=== PATIENT | male | born 1980 | race Caucasian/White ===

== ENCOUNTER 2022-01-15 10:53 | Outpatient (CLI) | payer OTHER, BC, SELFPAY ==
[2022-01-15 13:46] LABS: Albumin* 4.7 g/dL (3.3-5.0); Chloride* 102 mmol/L (96-114); Sodium* 139 mmol/L (135-149)
[2022-01-15 13:47] LABS: Potassium* 4.5 mmol/L (3.6-5.1)
[2022-01-15 13:48] LABS: Cholesterol* 168 mg/dL (90-199)
[2022-01-15 13:49] LABS: Alkaline Phosphatase* 37 U/L (40-150); Aspartate Amino Transferase* 23 U/L (12-35); Bilirubin Total* 0.8 mg/dL (0.1-1.5); Blood Urea Nitrogen* 16 mg/dL (5-24); Calcium* 9.5 mg/dL (8.4-10.6); Carbon Dioxide* 27 mmol/L (20-32); Creatinine* 0.8 mg/dL (0.5-1.5); Estimated Glomerular Filt Rate 113 ml/min; Glucose* 98 mg/dL (60-115); Total Protein* 7.3 g/dL (6.0-8.3); Triglycerides* 284 mg/dL (40-149)
[2022-01-15 13:50] LABS: Alanine Aminotransferase* 33 U/L (4-50); HDL Cholesterol* 38 mg/dL (>=40); LDL Cholesterol Calculated 73 mg/dL (<100)
== END 2022-01-15 10:54 | disposition home or self-care (01) ==
PROVIDERS: PCP Family Medicine; Visit Provider Family Medicine
DX: E78.00 Pure hypercholesterolemia, unspecified (principal)
CPT/HCPCS: 80053; 80061

== ENCOUNTER 2022-09-19 08:51 | Outpatient (CLI) | payer OTHER, BC, SELFPAY | END 2022-09-19 08:52 | disposition home or self-care (01) | LOC: OP CLINIC 08:53 | PROVIDERS: PCP Family Medicine; Visit Provider Surgery | DX: R19.7 Diarrhea, unspecified (principal) | CPT/HCPCS: 43239; 88305; J2250; J3010 ==

== ENCOUNTER 2023-04-14 08:02 | Outpatient (CLI) | payer OTHER, BC, SELFPAY | END 2023-04-14 08:03 | disposition home or self-care (01) | LOC: NFLDREF 04-16 06:53 | PROVIDERS: PCP Family Medicine; Referring Provider Family Medicine; Visit Provider Family Medicine | DX: E78.5 Hyperlipidemia, unspecified (principal); Z12.5 Encounter for screening for malignant neoplasm of prostate | CPT/HCPCS: 80053; 80061; G0103 ==

== ENCOUNTER 2023-08-12 15:46 | Outpatient (CLI) | payer OTHER, BC, SELFPAY ==
--- OUTSIDE RECORDS SUMMARY | 2023-08-12 15:50 | XMS_ITS | Clinical Summary ---
Author Name Unknown Organization [facility] Address [place], [place] [address] Care Team Providers Care Asset Protection Professional Name Role Phone Rm Romero MD Primary Care Provider [phone] Allergies Active Allergy Reactions Criticality Noted Date Comments Cefaclor Other - Describe In Comment Field 09/12/2009 Red man's disease Penicillins Other - Describe In Comment Field 09/12/2009 Red man's disease Medications Medication Sig Dispensed Refills Start Date End Date Status minocycline (MINOCIN) 100 mg capsule Take 1 capsule by mouth 2 times daily. 0 09/12/2009 Active Family History Medical History Relation Name Comments Good Health Father Cancer Mother Falopian Tube Relation Name Status Comments Father Mother Social History Tobacco Use Types Packs/Day Years Used Date Smoking Tobacco: Never Alcohol Use Standard Drinks/Week Comments Not Asked 0 (1 standard drink = 0.6 oz pur e alcohol) Sex and Gender Information Value Date Recorded Sex Assigned at Not on file Gender Identity Not on file Sexual Orientation Not on file Obstetrics History Last Filed Vital Signs Vital Sign Reading Time Taken Comments Blood Pressure 100/62 09/12/2009 2:18 PM CDT Pulse 66 09/12/2009 2:18 PM CDT Temperature - - Respiratory Rate - - Oxygen Saturation - - Inhaled Oxygen Concentration - - Weight 81.6 kg (180 lb) 09/12/2009 2:18 PM CDT Height 182 cm (5' 11.65) 09/12/2009 2:18 PM CDT Body Mass Index 24.65 09/12/2009 2:18 PM CDT Plan of Treatment Health Maintenance Due Date Last Done Comments Tdap 1989 Depression screening for age 12+ 1990 HIV for age 15-65 1993 BMI (ht and wt on same day) for age 18+ 1996 Hepatitis C screening for ag e 18-79 1996 Tetanus booster 1998 Lipids for age 35-44 2013 COVID-19 vaccine series (2022- season) 2022 02/07/2021, 06/28/2020, 06/02/2020 Influenza for age 9-49 12/07/2023 Pneumococcal series for age 6-64 Aged Out No longer eligible b ased on patient's age to complete this topic Care Teams Asset Protection Professional Relationship Specialty Start Date End Date Rm Romero MD [address] [place] [address] PCP - General Family Practice 02/27/22
--- NOTE | 2023-08-12 16:00 | CT_ITS ---
Patient: MARION ALICEA Facility:?[facility] Patient ID:?[id number] Site Patient ID:?[id number]. Site :?[id number] Study:?CT-Pelvis W/ ISOVUE 370-08/12/2023 4:19:28 PM Ordering Physician:PAM Final Report: Indication: Rectal pain with question of perirectal abscess. Left-sided pain with defecation Technique: CT examination of the pelvis was performed. Imaging was acquired in the axial plane. A total of 99 cc of Isovue 370 was administered. Imaging was acquired from the umbilicus through the upper thighs. Oral contrast was not administered. Sagittal and coronal reformatted imaging was performed Please note that all CT scans at this facility use dose modulation, iterative reconstruction, and/or weight-based dosing when appropriate to reduce radiation dose to as low as reasonably achievable. Comparison: There are no prior studies for comparison Findings: OSSEOUS STRUCTURES: Unremarkable SOFT TISSUES: Unremarkable PERIRECTAL AREA: Posterior perirectal collection with an enhancing margin most consistent with an abscess. This measures 2.1 x 2.1 x 2.3 centimeters in its anteroposterior, mediolateral and craniocaudal respective dimensions. This is isolated to the perirectal area and does not extend into the ischiorectal fossa or to a skin surface. Impression: Perirectal collection measuring 2.1 x 2.1 x 2.3 centimeters likely representing an abscess, as described above. Please note that all CT scans at this facility use dose modulation, iterative reconstruction, and/or weight-based dosing when appropriate to reduce radiation dose to as low as reasonably achievable. Dictated by Milton Woods MD @ 08/13/2023 8:00:02 AM Signed by:?Milton Woods MD @08/13/2023 8:00:02 AM (Electronic Signature)
== END 2023-08-12 15:47 | disposition home or self-care (01) ==
LOC: CT 15:47
PROVIDERS: PCP Family Medicine; Visit Provider Internal Medicine
DX: K62.89 Other specified diseases of anus and rectum (principal)
CPT/HCPCS: 72193; Q9967

== ENCOUNTER 2023-08-14 10:33 | Day surgery (SDC) | payer OTHER, BC, SELFPAY ==
[2023-08-14] VITALS (17 sets, daily range): BP systolic 104–125; BP diastolic 57–84; PULSE 58–71; RESP 14–16; TEMP 36.7–37.1; O2SAT 95–100; BMI 27.5
--- OUTSIDE RECORDS SUMMARY | 2023-08-14 10:36 | XMS_ITS | Clinical Summary ---
Author Name Unknown Organization [employer] [facility] Address [place], [place] [address] Care Team Providers Care Transfer Car Operator Drier Name Role Phone Rm Romero MD Primary Care Provider [phone] Allergies Active Allergy Reactions Criticality Noted Date [...] age to complete this topic Care Teams Transfer Car Operator Drier Relationship Specialty Start Date End Date Rm Romero MD [address] [place] [address] PCP - General Family Practice 02/27/22
[2023-08-14] MEDS: LACTATED RINGERS 1000 ML 1,000 ML 100 ML IV (11:17)
[2023-08-14] MEDS: SODIUM CHLORIDE 0.9 % (FLUSH) 10 ML SYRINGE IVF (11:17)
--- NOTE | 2023-08-14 11:40 | P.GSCN_ITS ---
History of Present Illness Consult details Date Seen: 08/14/23 Consult date: 08/14/23 Narrative: The patient is a 42-year-old male who presented to primary care clinic with 2 days of painful left-sided perirectal pain. This was worse with bowel movements. He has never had anything like this previously. Workup review node fullness in the perianal area on the left without obvious erythema or fluctuance. White blood cell count was normal. CT scan did show an abscess in the posterior perirectal space, not extending to the skin or ischial rectal fossa. He was given antibiotics and scheduled with surgery. He states the pain began abruptly 5 days ago. He thought was a hemorrhoid though he has never had hemorrhoids before. On Friday he was mowing and had significant amount of pain with walking. He has not had any fevers or drainage. Symptoms have not get better so he presented to clinic earlier this week. He was placed on antibiotics once the abscess was found and discussion was had with General surgery. The plan was exam under anesthesia. He presents today for this. He has never had an abscess previously. He has been diagnosed with irritable bowel syndrome in the past. He states that he has had issues of fecal urgency and incontinence that it happened. It happened 2 to times last week. He states that he does not necessarily have diarrhea, but his stools will be soft. He states that he has 2-3 soft stools per day. They are not firm and they are not loose. He has been on a soft diet because of oral surgery. He is also on prednisone and clindamycin from his oral surgeon. This was for an infection. He has now been on Cipro and Flagyl for the past 2 days. He is again not had any diarrhea or incontinence since last week. His daughter was diagnosed with celiac disease recently and he underwent an endoscopy which was normal. He is scheduled for colonoscopy in November. He has not seen anybody about his bowel issues, however he was supposed to see a urologist possibly as part of a pelvic floor center consult, however he was embarrassed by the testing that was going to have to be done and did not follow-up with that. [facility] Medical History (Updated 08/14/23 @ 11:49 by Chloe Jacobson MD) Rectal Pain ?K62.89 - Other specified diseases of anus and rectum (ICD-10) ETD (eustachian tube dysfunction) ?H69.80 - Other specified disorders of Eustachian tube, unspecified ear (ICD- 10) Family history of celiac disease ?Z83.79 - Family history of other diseases of the digestive system (ICD-10) Diarrhea ?R19.7 - Diarrhea, unspecified (ICD-10) Actinic keratosis ?L57.0 - Actinic keratosis (ICD-10) BPH associated with nocturia ?N40.1 - Benign prostatic hyperplasia with lower urinary tract symptoms (ICD- 10) ?R35.1 - Nocturia (ICD-10) Family History (Updated 08/14/23 @ 11:45 by Chloe Jacobson MD) Daughter Celiac disease Social History (Updated 08/14/23 @ 11:45 by Chloe Jacobson MD) Narrative: He works as a clinical unit educator. Smoking Status: Never smoker How often do you have a drink containing alcohol: monthly or less Alcohol type: beer How many standard drinks containing alcohol do you have on a typical day: 1 or 2 How often do you have six or more drinks on one occasion: Never AUDIT-C Alcohol total score: 1 Non-prescribed substance use: denies use Caffeine: No Little interest or pleasure in doing things: not at all Feeling down, depressed, or hopeless: not at all Meds Home Medications and Allergies Home Medications Medication Instructions Recorded Confirmed Type multivitamin 1 tab PO QDAY 01/28/22 08/14/23 History Allergies Allergy/AdvReac Type Severity Reaction Status Date / Time cefaclor Allergy Intermediate Rash Verified 08/14/23 10:46 Penicillins Allergy Rash Verified 08/14/23 10:46 Exam Narrative: Exam Narrative: General appearance: Alert, cooperative, and in no distress Eyes: PERRLA, eye lids clear, and sclera white HENT Head: Normocephalic Ears: External ears normal Pulmonary: Breathing nonlabored on room air Cardiovascular Heart: Regular rate Extremities: warm and well perfused Rectal: On external exam there is no erythema or masses. Digital exam deferred given patient discomfort and plan for exam under anesthesia. Musculoskeletal: Extremities: Upper: Both upper extremities have normal joint range of motion and intact strength. Lower: Both lower extremities have normal joint range of motion and intact strength. Skin: Normal skin color, texture, and turgor. Neurologic: No focal deficits Psychiatric: Alert, oriented, cooperative, normal affect. Results Labs Labs: Patient does not have recent labs. Imaging CT scan - pelvis: report reviewed and image reviewed Additional studies: Patient: MARION ALICEA Facility: [facility] Site . Site : 1980 Study: CT-Pelvis W/ ISOVUE 370-08/12/2023 4:19:28 PM Ordering Physician: MANOJ Final Report: Indication: Rectal pain with question of perirectal abscess. Left-sided pain with defecation Technique: CT examination of the pelvis was performed. Imaging was acquired in the axial plane. A total of 99 cc of Isovue 370 was administered. Imaging was acquired from the umbilicus through the upper thighs. Oral contrast was not administered. Sagittal and coronal reformatted imaging was performed Please note that all CT scans at this facility use dose modulation, iterative reconstruction, and/or weight-based dosing when appropriate to reduce radiation dose to as low as reasonably achievable. Comparison: There are no prior studies for comparison Findings: OSSEOUS STRUCTURES: Unremarkable SOFT TISSUES: Unremarkable PERIRECTAL AREA: Posterior perirectal collection with an enhancing margin most consistent with an abscess. This measures 2.1 x 2.1 x 2.3 centimeters in its anteroposterior, mediolateral and craniocaudal respective dimensions. This is isolated to the perirectal area and does not extend into the ischiorectal fossa or to a skin surface. Impression: Perirectal collection measuring 2.1 x 2.1 x 2.3 centimeters likely representing an abscess, as described above. Progress Note:A&P Assessment and plan (1) Perirectal abscess: Status: Acute Plan The patient is 42-year-old male with a perirectal abscess, given symptoms and presentation likely intersphincteric. We discussed the management of this which is exam under anaesthesia and definitive drainage. Intersphincteric abscess he is generally need to be drained. Generally in the setting of intersphincteric abscess and drainage into the rectum, it is necessary to divide some of the internal sphincter muscle fibers. I am hesitant to do this in his case given his history of urgency and incontinence. He understands that if this recurs I will refer him to Colorectal surgery. He asked if his colonoscopy should be done sooner. I think this is reasonable, however I do think he should heal from the abscess 1st. If there is no internal fistula then I will drain the asked this to the skin. There chance he may need a seton, based on intraoperative findings we discussed seton placement and that this would necessitate additional procedures to ligate the persistent fistula tract. This will be done by Colorectal surgery. We discussed recovery from surgery and return to activities. Some of this will depend on exactly what is found at the time surgery. He expressed understanding and agreed to proceed with exam under anesthesia and drainage of this abscess.
[2023-08-14] MEDS: ERTAPENEM 1 GM inj IVPB (12:00)
[2023-08-14] MEDS: BUPIVACAINE 0.25% 30 ML 10 ML INJECTION (12:09)
[2023-08-14] MEDS: BUPIVACAINE LIPOSOME 133 MG/10 ML INJ INFILTRATI (12:30)
--- NOTE | 2023-08-14 12:47 | W.ANESCHARGE ---
Anesthesia Charges Start Date/Time Anesthesia Start Date: 08/14/23 Anesthesia Start Time: 11:43 Stop Date/Time Anesthesia Stop Date: 08/14/23 Anesthesia Stop Time: 12:46
--- NOTE | 2023-08-14 12:49 | PM.GSPRC ---
Operative Note Date of procedure: 08/14/23 Pre-op diagnosis: Sonam rectal abscess Post-op diagnosis: Same Type of Procedure: 1. Exam under anesthesia 2. Incision and drainage perirectal abscess Indications: The patient is a 42-year-old male who developed perianal pain. Workup revealed a perirectal abscess posteriorly. Exam under anesthesia and drainage was recommended. Procedure Description: After discussing the risks and benefits of the procedure, the patient signed informed consent.? The operative site was marked and the patient was brought to the operating room and intubated by Anesthesia. He was then placed in the prone good-knife position with care to pad his pressure points. The area was prepped and draped in the usual sterile fashion.? A time-out was then performed. I began with an external exam. I was unable to palpate any masses. There was no erythema on the perianal skin. I placed my finger in the anal canal. No masses were palpable. I was able to palpate both sphincter muscles. No masses were palpable here. There was no purulence draining into the anal canal and no visible internal openings. I then used a 19 gauge needle and, palpating just posterior to the external sphincter, I advanced the needle and aspirated copious purulent fluid. This was sent for culture. I then created a small incision in the skin again outside of the palpable external sphincter muscle. I used a Millie clamp to gently probe into the subcutaneous tissue and the abscess cavity was entered. Copious purulence returned. This was irrigated. Once this was done the wound was packed with quarter-inch packing strip. Hemostasis appeared adequate at the end of the case. A dressing was applied over the packing strip. The patient was then woken and transported to the recovery area in stable condition. ? The patient tolerated the procedure well. Findings: Posterior perirectal abscess. No internal openings noted. Anesthesia: GETA Surgeon: Chloe Jacobson MD Estimated blood loss (mL): 5 Specimen: Other Additional Specimen Information: Abscess fluid for culture Condition: stable Disposition: PACU
--- NOTE | 2023-08-14 13:00 | W.ANESCHARGE ---
Anesthesia Charges Start Date/Time Anesthesia Start Date: 08/14/23 Anesthesia Start Time: 11:43 Stop Date/Time Anesthesia Stop Date: 08/14/23 Anesthesia Stop Time: 12:46
[2023-08-14] MEDS: fentaNYL 100 MCG/2 ML inj 50 MCG IVP ×2 (13:06→13:16)
--- NOTE | 2023-08-14 13:54 | SUR.OPER ---
PATIENT QUESTIONS ANSWERED SATISFACTORILY PREOPERATIVELY. PATIENT BROUGHT TO OR #1 PER CART. Patient positioned supine on OR #1 bed for the intubation. The perioperative team supported arms bilaterally on arm boards. Final approval of positioning by surgeon.
[2023-08-14] MEDS: HYDROCODONE-ACETAMIN 5-325 MG 1 TAB PO (14:27)
== END 2023-08-14 14:58 | disposition home or self-care (01) ==
PROVIDERS: PCP Family Medicine; Visit Provider Surgery
PROC: (CPT 46040; principal; 2023-08-14 10:45)
DX: K61.1 Rectal abscess (principal); K62.89 Other specified diseases of anus and rectum
CPT/HCPCS: 46040; 00902; 87070; 87075; 87205; A9270; C9290; J0665; J1100; J1335; J1885; J2250; J2405; J2704; J2710; J3010; J7120

== ENCOUNTER 2023-11-20 06:35 | Outpatient (CLI) | payer BC, SELFPAY ==
--- OUTSIDE RECORDS SUMMARY | 2023-11-20 06:40 | XMS_ITS | Clinical Summary ---
Author Organization [employer] [facility] Address [place], [place] [address] Care Team Providers Care Stock Or Delivery Clerk Name Role Phone Rm Romero MD Primary Care Provider [phone] Allergies Active Allergy Reactions Criticality Noted Date [...] ag e 18-79 1996 Tetanus booster 1998 COVID-19 vaccine series (2022- season) 2022 02/07/2021, 06/28/2020, 06/02/2020 Colonoscopy through age 75 11/07/2023 Lipids for age 45-75 11/07/2023 Influenza for age 9-49 12/07/2023 Pneumococcal series for age 6-64 Aged Out No longer eligible b ased on patient's age to complete this topic Care Teams Stock Or Delivery Clerk Relationship Specialty Start Date End Date Rm Romero MD [address] [place] [address] PCP - General Family Practice 02/27/22
--- OUTSIDE RECORDS SUMMARY | 2023-11-20 06:40 | XMS_ITS | Data Portability ---
Author Organization [place] [facility] [place] [facility], [facility] Address [address] [place] [address] [address] [place] [address] Care Team Providers Care Presser Machine Name Role Phone ALY ROQUE Primary Care Provider Assessment Encounter Date Assessment Date Assessment LastModified by Organization Details LastModified Time 11/19/2023 11/19/2023 43M with urinary frequency, urgency, and urge incontinence. Treatment options for overactive bladder were reviewed with the patient today. First line measures include non-pharmacologi c options like dietary changes, bladder training, distraction, pelvic floor exercises/streng thening, pelvic floor physical therapy and fluid restriction. Limiting amounts of bladder irritants such as coffee, tea, other caffeinated drinks, soda, alcohol & carbonated water, can help along with dietary changes like avoiding spicy and acidic foods. Decreasing fluids 2-3 hours prior to bedtime can also help. Second line therapy includes medication management of symptoms. There are many medications that are approved for OAB (anticholinergic s--risk for dry mouth/constipati on most commonly, or a newer Hvvg-2-azjiewc medications, Myrbetriq & Gemtesa). I have suggested looking into insurance coverage for medication, as some beta-3s are not covered well under some insurance plans. Appears his insurance covers Gemtesa with predicted cost of $40/month. 1. Urinary urgency and frequency, Urge incontinence - stop tamsulosin - lifestyle/dietar y modifications as above - trial Gemtesa 75 mg daily, side effects reviewed, 8+ weeks to take full effect - will be starting PFPT through colorectal in January and should proceed with that - f/u in 8 weeks for PVR, symptom review [email or web address] Not available 11/19/2023 15:21:24 Plan of Treatment Reminders Order Date Submit Date Provider Last Modified By Organization Details Last Modified Time Details Appointments ESTABLISH ED 20 2023 10:40A M Not available Not available Not available Lab urinalysi s, dipstick 2023 024 [email or web address] [facility], [address], [place], [address], 11/19/2023 14:22:02 Referral None recorded. Procedures None recorded. Surgeries None recorded. Imaging None recorded. Medication Orders Gemtesa 75 mg tablet 2023 024 [id number], [address], [place], [address], 11/19/2023 14:34:47 Patient TargetsNo targets recorded. Patient InstructionsNo instructions recorded. Reason for Referral None Reported. Results Created Date Observation Date Name Description Value Unit Range Abnormal Flag LastModifiedBy Organization Detail LastModifiedTime 11/19/1911/19/2023 urina lysis , dipst ick BLOOD Negati ve Not Available [facility] [address], [place], [address], 11/19/2023 09:10:52 11/19/19 24 11/19/2023 urina lysis , dipst ick BILIRUBIN Negati ve Not Available [facility] [address], [place], [address], 11/19/2023 09:10:52 11/19/1911/19/2023 urina lysis , dipst ick UROBILINOGEN 0.2 mg/dL (Norm) Not Available [facility] [address], [place], [address], 11/19/2023 09:10:52 11/19/19 24 11/19/2023 urina lysis , dipst ick KETONES Negati ve Not Available [facility] [address], [place], [address], 11/19/2023 09:10:52 11/19/19 24 11/19/2023 urina lysis , dipst ick PROTEIN Negati ve Not Available [facility] [address], [place], [address], 11/19/2023 09:10:52 11/19/19 24 11/19/2023 urina lysis , dipst ick NITRITES Negati ve Not Available [facility] [address], [place], [address], 11/19/2023 09:10:52 11/19/19 24 11/19/2023 urina lysis , dipst ick GLUCOSE Negati ve Not Available [facility] [address], [place], [address], 11/19/2023 09:10:52 11/19/19 24 11/19/2023 urina lysis , dipst ick p.H. 5.5 Not Available [facility] [address], [place], [address], 11/19/2023 09:10:52 11/19/19 24 11/19/2023 urina lysis , dipst ick LEUKOCYTES Negati ve Not Available [facility] [address], [place], [address], 11/19/2023 09:10:52 11/19/19 24 11/19/2023 urina lysis , dipst ick S.G. (Specific [place]) 1.025 Not Available [facility] [address], [place], [address], 11/19/2023 09:10:52 Result Notes None recorded. Problems Name Status Onset Date Resolution Date Notes Provider Name and Address Organization Details Recorded Time Increased frequency of urination Active 11/18/19 Kristina Dean PA-C [address] [place] [address], [place], [place], [address] [place] [address] [facility] 11/18/2023 16:54:27 Urgent desire to urinate Active 11/19/19 24 Kristina Dean PA-C [address] [place] [address],[address] 11/19/2023 14:28:57 Urge incontinence of urine Active 11/19/19 24 Kristina Dean PA-C [address] [place] [address],[address] 11/19/2023 14:28:58 Problem Notes None recorded. Procedures Surgical History Date Name Laterality Status Provider Name and Address Organization Details Recorded Time Bladder Scan completed Kristina Dean PA-C [address] [place] [address],[address] 11/19/2023 15:20:31 Imaging Results None recorded. Procedure Notes None recorded. Medical Equipment None Reported. Allergies Allergen ID Allergen Name Allergen Category Reaction Reaction Severity Criticality Documentation Date Start Date Code Code System Note Provider Name and Address Organization Details Recorded Time 559828 Medicinal product containin g penicilli n and acting as antibacte rial agent (product) medicatio n Not available Not available Not available 11/19/2023 09500 05 [facility]ED [facility] Medications Name Sig Start Date Stop Date Status Note LastModified by Organization Details LastModified Time clindamycin HCl 300 mg capsule TAKE ONE CAPSULE BY MOUTH THREE TIMES DAILY UNTIL GONE* 11/18 completed Not Available Not Available Not Available etodolac 300 mg capsule TAKE FIRST TABLET ONE HOUR PRIOR TO SURGICAL APPOINTME NT. AFTER SURGERY TAKE ONE TABLET EVERY 8 HOURS NEEDED FOR DISCOMFOR T* 11/18 completed Not Available Not Available Not Available azithromyci n 250 mg tablet TAKE 2 TABLETS BY MOUTH ON DAY 1 THEN 1 TABLET DAILY ON DAYS 2-5* 11/18 completed Not Available Not Available Not Available prednisone 20 mg tablet Take 1 tablet by mouth twice a day for 5 days* 11/18 completed Not Available Not Available Not Available fluorouraci l 5 % topical cream Apply cream to affected skin one day per week.* 11/18 completed Not Available Not Available Not Available metronidazo le 250 mg tablet Take 1 tablet by mouth three times a day* 11/18 completed Not Available Not Available Not Available ciprofloxac in 500 mg tablet Take 1 tablet by mouth twice a day* 11/18 completed Not Available Not Available Not Available ketorolac 10 mg tablet TAKE ONE TABLET BY MOUTH THREE TIMES DAILY NEEDED FOR PAIN* 11/18 completed Not Available Not Available Not Available tamsulosin 0.4 mg capsule Take 1 capsule by mouth every day at bedtime* active Not Available Not Available No t Available cephalexin 500 mg capsule STARTING MORNING OF SURGERY, TAKE 1 CAPSULE BY MOUTH 3 TIMES DAILY* 11/18 completed Not Available Not Available Not Available methylpredn isolone 4 mg tablets in a dose pack STARTING THE MORNING OF SURGERY, FOLLOW PACKAGE DIRECTION S* 11/18 completed Not Available Not Available Not Available rosuvastati n 20 mg tablet Take 1 tablet by mouth daily* active Not Available Not Available No t Available chlorhexidi ne gluconate 0.12 % mouthwash STARTING MORNING OF SURGERY, RINSE AND SPIT 15 MLS IN MOUTH AFTER BREAKFAST AND AT BEDTIME. DO NOT EAT, DRINK, OR RINSE FOR 30 MINUTES.* 11/18 completed Not Available Not Available Not Available GaviLyte-G 236 gram-22.74 gram-6.74 gram-5.86 gram oral solution 1 day prior to scopes, between 4 and 6 p.m., drink 8 oz glass every 15 minutes until half a gallon is gone. 6 hours prior to procedure , drink 8 oz glass every 15 minutes until second half gallon is gone.* 11/18 completed Not Available Not Available Not Available Gemtesa 75 mg tablet Take 1 tablet every day by oral route. 2023 active Not Available Not Available Not Avai lable Vitals Date Recorded Body height Body mass index (BMI) Body weight Provider Name and Address Organization Details Last Updated DateTime 11/19/2023 182.88 cm 26.4 kg/m2 43543.[address] [facility] 11/19/2023 14:12:39 Social History Question Answer Notes LastModified by Organizat ion Details LastModified Time Tobacco Smoking Status Never Smoker Adeola avilez [facility] 11/19/2023 14:10:03 What Is Your Level Of Alcohol Consumption? Occasional Information not available 11/19/2023 What Is Your Level Of Caffeine Consumption? None Information not available 11/19/2023 What Was The Date Of Your Most Recent Tobacco Screening? 11/12/2023 Information not available 11/19/2023 Have You Ever Been Counseled For Unhealthy Alcohol Use? No Information not available 11/19/2023 Do You Use Any Illicit Or Recreational Drugs? No Information not available 11/19/2023 Do You Or Have You Ever Used Any Other Forms Of Tobacco Or Nicotine? No Information not available 11/19/2023 How Many Days In The Past Year Have You Consumed 5 Or More Drinks? 0 Information no t available 11/19/2023 Sex: Unknown Functional Status None recorded. Mental Status None recorded. Family History Relationship Description Onset Age of this Age Resolved Age Notes Notes:Fallopian cancer - Mot her Medical History Condition Response Other N High Blood Pressure N Kidney Stones N Depression N Lung Disease N GERD/Acid Reflux N Sexually Transmitted Infection N Cancer Y High Cholesterol Y Diabetes N Bleeding Disorder N Heart Disease N Immunizations Vaccine Type Date Status Provider Name and Address Organization Details Recorded Time COVID-19, mRNA, LNP-S, PF, 100 mcg/0.5mL dose or 50 mcg/0.25mL dose 06/02/[address] [facility] 11/19/2023 13:59:28 COVID-19, mRNA, LNP-S, PF, 100 mcg/0.5mL dose or 50 mcg/0.25mL dose 06/28/[address] [facility] 11/19/2023 13:59:28 COVID-19, mRNA, LNP-S, PF, 100 mcg/0.5mL dose or 50 mcg/0.25mL dose 02/07/[address] [facility] 11/19/2023 13:59:28 Tdap 11/14/[address] [facility] 11/19/2023 13:59:28 Influenza, split virus, trivalent, preservative 01/04/2011 completed Adeola avilez, [facility] 11/19/2023 13:59:28 Td (adult), 5 Lf tetanus toxoid, preservative free, adsorbed 09/24/2005 completed Adeola avilez, [facility] 11/19/2023 13:59:28 Influenza, split virus, quadrivalent, PF 12/07/2021 completed Adeola avilez, [facility] 11/19/2023 13:59:28 Influenza, split virus, quadrivalent, PF 01/19/2019 completed Adeola avilez, [facility] 11/19/2023 13:59:28 Influenza, split virus, quadrivalent, PF 01/20/2017 completed Adeola avilez, [facility] 11/19/2023 13:59:28 Influenza, split virus, quadrivalent, PF 01/31/2020 completed Adeola avilez, [facility] 11/19/2023 13:59:28 Influenza, split virus, quadrivalent, PF 02/02/2018 completed Adeola avilez, [facility] 11/19/2023 13:59:28 Past Encounters Encounter ID Performer Location Encounter Start Date Encounter Closed Date Diagnosis/Indication Diagnosis SNOMED-CT Code [id number] Kristina Dean PA-C [facility] [address] [place] [address] 11/19/2023 13:55:21 11/19/2023 15:21:36 Increased frequency of urination [id number] Urgent magdalena deo to urinate 46357044 Urge incon tinence of urine [id number] Health Concerns Section Related Observation LastModified by Organization Detai ls LastModified Time None Recorded Concern Status LastModified by Organization Details LastModified Time None Recorded Advance Directives Directive None Recorded Payers Encounter Date Sequence Insurance Name Policy Number Policy Quigley Covered Member ID Quigley Member ID Guarantor Name 11/19/2023 1 [place] [id number] Reinaldo Carty [id number] Reinaldo Carty 11/19/2023 2 [place] BCESTHELA GARCIA (PPO) Reinaldo Carty [id number] Reinaldo Carty Notes Date Note Type Note Provider Name and Address Organization Details Recorded Time 11/19/2023 text/html HPI Notes: 43M w ith urinary frequency, urgency, and incontinence. He reports urinary urgency and frequency for about 5 years. Frequency is worse during the day; sometimes has to return to restroom within 10-15 minutes of last void. Also experiences strong urgency. Has had a few episodes of urge incontinence. Limits his fluid intake regularly to help minimize the frequency; feels he does not get to hydrate adequately because of this. On tamsulosin 0.4 mg daily at baseline through his PCP for past couple of years, but he doesn't feel this has made a difference in his symptoms. Denies dysuria or gross hematuria. No history of UTIs or kidney stones. UA today negative PVR today 0 cc PMH: HLD PSH: Soc: Occ: education administration Tobacco: never smoker EtOH: occasional FHx: no FHx prostate cancer Kristina Dean PA-C [address] [facility],[address], [place], [address], [facility] 11/19/2023 15:21:33
--- OUTSIDE RECORDS SUMMARY | 2023-11-20 06:40 | XMS_ITS | Continuity of Care Document ---
Author Organization [facility], [facility] Address [address] [place] [address] Care Team Providers Care Chief Dog License Inspector Name Role Phone ALY ROQUE Primary Care [...] mouth/constipati on most commonly, or a newer Iwuk-8-xzwtwye medications, Myrbetriq & Gemtesa). I have suggested [...] in 8 weeks for PVR, symptom review Not available 11/19/2023 15:21:24 Plan of Treatment Reminders Order Date Submit Date Provider Last Modified By Organization Details Last Modified Time Details Appointments ESTABLISH ED 20 2023 10:40A M Not available Not available Not available Lab urinalysi s, dipstick 2023 024 [email or web address] [facility], [address], [place], [address], 11/19/2023 14:22:02 Referral None recorded. Procedures None recorded. Surgeries None recorded. Imaging None recorded. Medication Orders Gemtesa 75 mg tablet 2023 024 [id number], [address], [place], [address], 11/19/2023 14:34:47 Patient TargetsNo targets recorded. Patient InstructionsNo instructions recorded. Reason for Referral None Reported. Results Created Date Observation Date Name Description Value Unit Range Abnormal Flag LastModifiedBy Organization Detail LastModifiedTime 11/19/1911/19/2023 urina lysis , dipst ick BLOOD Negati ve Not Available [facility] [address], [place], [address], 11/19/2023 09:10:52 11/19/1911/19/2023 urina lysis , dipst ick BILIRUBIN Negati ve Not Available [facility] [address], [place], [address], 11/19/2023 09:10:52 11/19/1911/19/2023 urina lysis , dipst ick UROBILINOGEN 0.2 mg/dL (Norm) Not Available [facility] [address], [place], [address], 11/19/2023 09:10:52 11/19/1911/19/2023 urina lysis , dipst ick KETONES Negati ve Not Available [facility] [address], [place], [address], 11/19/2023 09:10:52 11/19/19 24 11/19/2023 urina lysis , dipst ick PROTEIN Negati ve Not Available [facility] [address], [place], [address], 11/19/2023 09:10:52 11/19/19 24 11/19/2023 urina lysis , dipst ick NITRITES Negati ve Not Available [facility] [address], [place], [address], 11/19/2023 09:10:52 11/19/19 24 11/19/2023 urina lysis , dipst ick GLUCOSE Negati ve Not Available [facility] [address], [place], [address], 11/19/2023 09:10:52 11/19/19 24 11/19/2023 urina lysis , dipst ick p.H. 5.5 Not Available [facility] [address], [place], [address], 11/19/2023 09:10:52 11/19/19 24 11/19/2023 urina lysis , dipst ick LEUKOCYTES Negati ve Not Available [facility] [address], [place], [address], 11/19/2023 09:10:52 11/19/19 24 11/19/2023 urina lysis , dipst ick S.G. (Specific [place]) 1.025 Not Available [facility] [address], [place], [address], 11/19/2023 09:10:52 Result Notes None recorded. Problems Name Status Onset Date Resolution Date Notes Provider Name and Address Organization Details Recorded Time Increased frequency of urination Active 11/18/19 Kristina Dean PA-C [address] [place] [address],[address], [place], [address] [facility] [address] [facility] 11/18/2023 16:54:27 Urgent desire to urinate Active 11/19/19 24 Kristina Dean PA-C [address] [place] [address],[place] [phone] [place] [address] 11/19/2023 14:28:57 Urge incontinence of urine Active 11/19/19 24 Kristina Dean PA-C [address] [place] [address] [place] [address] 11/19/2023 14:28:58 Problem Notes None recorded. Procedures Surgical History Date Name Laterality Status Provider Name and Address Organization Details Recorded Time Bladder Scan completed Kristina Dean PA-C [address] [place], [place] [phone] [place] [address] 11/19/2023 15:20:31 Imaging Results None recorded. Procedure Notes None recorded. Medical Equipment None Reported. Allergies Allergen ID Allergen Name Allergen Category Reaction Reaction Severity Criticality Documentation Date Start Date Code Code System Note Provider Name and Address Organization Details Recorded Time 621489 Medicinal product containin g penicilli n and acting as antibacte rial agent (product) medicatio n Not available Not available Not available 11/19/2023 07735 05 SNOMED [facility] 14[facility]12[facility]20 Medications Name Sig Start Date Stop [...] Updated DateTime 11/19/2023 182.88 cm 26.4 kg/m2 99442.51 g Adeola Jordan [facility] 11/19/2023 14:12:39 Social History Question Answer Notes LastModified by Organizat ion Details LastModified Time Tobacco Smoking Status Never Smoker Adeola avilez [facility] 11/19/2023 14:10:03 What Is Your Level Of [...] High Blood Pressure N Kidney Stones N Lung Disease N Depression N GERD/Acid Reflux N Sexually Transmitted Infection N Cancer Y High Cholesterol Y Diabetes N Bleeding Disorder N Heart Disease N Immunizations Vaccine Type Date Status Provider Name and Address Organization Details Recorded Time COVID-19, mRNA, LNP-S, PF, 100 mcg/0.5mL dose or 50 mcg/0.25mL dose 06/02/2020 completed Adeola avilez [facility] 11/19/2023 13:59:28 COVID-19, mRNA, LNP-S, PF, 100 mcg/0.5mL dose or 50 mcg/0.25mL dose 06/28/2020 completed Adeola avilez [facility] 11/19/2023 13:59:28 COVID-19, mRNA, LNP-S, PF, 100 mcg/0.5mL dose or 50 mcg/0.25mL dose 02/07/2021 completed Adeola avilez [facility] 11/19/2023 13:59:28 Tdap 11/14/2015 completed Adeola avilez [facility] 11/19/2023 13:59:28 Influenza, split virus, trivalent, preservative 01/04/2011 completed Adeola avilez, [facility] 11/19/2023 13:59:28 Td (adult), 5 Lf tetanus toxoid, preservative free, adsorbed 09/24/2005 completed Adeola avilez, [facility] 11/19/2023 13:59:28 Influenza, split virus, quadrivalent, PF 12/07/2021 completed Adeola aivlez, [facility] 11/19/2023 13:59:28 Influenza, split virus, quadrivalent, PF 01/19/2019 completed Adeola vailez, [facility] 11/19/2023 13:59:28 Influenza, split virus, quadrivalent, PF 01/20/2017 completed Adeola avilez, [facility] 11/19/2023 13:59:28 Influenza, split virus, quadrivalent, PF 01/31/2020 completed Adeola avilez [facility] 11/19/2023 13:59:28 Influenza, split virus, quadrivalent, PF 02/02/2018 completed Adeola avilez, [facility] 11/19/2023 13:59:28 Past Encounters Encounter ID Performer Location Encounter Start Date Encounter Closed Date Diagnosis/Indication Diagnosis SNOMED-CT Code [id number] Kristina Dean PA-C [facility] [address] [id number] 11/19/2023 13:55:21 11/19/2023 15:21:36 Increased frequency of urination [id number] Urgent magdalena deo to urinate 91732583 Urge incon tinence of urine [id number] Health Concerns Section Related Observation LastModified by Organization Detai ls LastModified Time None Recorded Concern Status LastModified by Organization Details LastModified Time None Recorded Payers Encounter Date Sequence Insurance Name Policy Number Policy Quigley Covered Member ID Quigley Member ID Guarantor Name 11/19/2023 1 [place] [id number] Reinaldo Carty [id number] Reinaldo Carty 11/19/2023 2 [place] GARC[place] (PPO) Reinaldo Carty [id number] Reinaldo Carty Notes Date Note Type Note [...] no FHx prostate cancer Kristina Dean PA-C [address] [place] [address],[address], [place], [address], [facility] 11/19/2023 15:21:33
--- NOTE | 2023-11-20 07:50 | W.ANESCHARGE ---
Anesthesia Charges Start Date/Time Anesthesia Start Date: 11/20/23 Anesthesia Start Time: 07:18 Stop Date/Time Anesthesia Stop Date: 11/20/23 Anesthesia Stop Time: 07:46
--- NOTE | 2023-11-20 08:19 | W.ANESCHARGE ---
Anesthesia Charges Start Date/Time Anesthesia Start Date: 11/20/23 Anesthesia Start Time: 07:18 Stop Date/Time Anesthesia Stop Date: 11/20/23 Anesthesia Stop Time: 07:46
== END 2023-11-20 06:36 | disposition home or self-care (01) ==
LOC: OP CLINIC 06:37
PROVIDERS: PCP Family Medicine; Visit Provider Surgery
DX: Z12.11 Encounter for screening for malignant neoplasm of colon (principal); K63.5 Polyp of colon; Z83.719 Family history of colon polyps, unspecified
CPT/HCPCS: 00811; 45385; 88305; J2704

== ENCOUNTER 2024-01-20 08:01 | Outpatient (CLI) | payer BC, SELFPAY ==
--- OUTSIDE RECORDS SUMMARY | 2024-01-21 10:23 | XMS_ITS | Data Portability ---
Author Organization [place] [facility], [facility] Address [address] [place] [address] [address] [place] [address] Care Team Providers Care Recreation Worker Name Role Phone ALY ROQUE Primary Care [...] mouth/constipati on most commonly, or a newer Sdmj-1-nysdcyj medications, Myrbetriq & Gemtesa). I have suggested [...] in 8 weeks for PVR, symptom review [email or web address] Not available 11/19/2023 15:21:24 Plan of Treatment Reminders Order Date Submit Date Provider Last Modified By Organization Details Last Modified Time Details Appointments ESTABLISH ED 20 2023 10:40A M Kristina Dean PA-C Not available Not available Not available Lab urinalysi s, dipstick 2023 024 [email or web address] [facility], [address], [place], [address], 11/19/2023 14:22:02 Referral None recorded. Procedures None recorded. Surgeries None recorded. Imaging None recorded. Medication Orders Gemtesa 75 mg tablet 2023 024 [id number], [address], [place], [address], 11/19/2023 14:34:47 Patient TargetsNo targets recorded. Patient InstructionsNo instructions recorded. Reason for Referral None Reported. Results Created Date Observation Date Name Description Value Unit Range Abnormal Flag Note LastModifiedBy Organization Detail LastModifiedTime 11/19/1911/19/2023 urina lysis , dipst ick BLOOD Negati ve Not Available [facility] [address], [place], [address], 11/19/2023 09:10:52 11/19/19 24 11/19/2023 urina lysis , dipst ick BILIRUBIN Negati ve Not Available [facility] [address], [place], [address], 11/19/2023 09:10:52 11/19/19 24 11/19/2023 urina lysis , dipst ick UROBILINOGEN 0.2 mg/dL (Norm) Not Available [facility] [address], [place], [address], 11/19/2023 09:10:52 11/19/19 24 11/19/2023 urina lysis , dipst ick KETONES Negati ve Not Available [facility] [address], [place], [address], 11/19/2023 09:10:52 11/19/19 24 11/19/2023 urina lysis , dipst ick PROTEIN Negati ve Not Available [facility] [address], [place], [address], 11/19/2023 09:10:52 11/19/19 24 11/19/2023 urina lysis , dipst ick NITRITES Negati ve Not Available [facility] [address], [place], [address], 11/19/2023 09:10:52 11/19/19 24 11/19/2023 urina lysis , dipst ick GLUCOSE Negati ve Not Available [facility] [address], [place], [address], 11/19/2023 09:10:52 11/19/19 24 11/19/2023 urina lysis , dipst ick p.H. 5.5 Not Available [facility] [address], [place], [address], 11/19/2023 09:10:52 11/19/19 24 11/19/2023 urina lysis , dipst ick LEUKOCYTES Negati ve Not Available [facility] [address], [place], [address], 11/19/2023 09:10:52 11/19/19 24 11/19/2023 urina lysis , dipst ick S.G. (Specific [place]) 1.025 Not Available [facility] [address], [place], [address], 11/19/2023 09:10:52 Result Notes None recorded. Problems Name Problem SNOMED Code Status Onset Date Resolution Date Notes Provider Name and Address Organization Details Recorded Time Increased frequency of urination 965426363 Active 2023 Kristina Dean PA-C [address] [facility],[address], [place], [address], [facility] 4 16:54:27 Urgent desire to urinate 68878937 Active 2023 Kristina Dean PA-C [address] [place] [address],[address], [place], [address], [facility] 4 14:28:57 Urge incontinence of urine 37495309 Active 2023 Kristina Dean PA-C [address] [place] [address],[address], [place], [address], [facility] 4 14:28:58 Problem Notes None recorded. Procedures Surgical History Date Name Laterality Status Provider Name and Address Organization Details Recorded Time Bladder Scan active Adeola Jordan [facility] 01/21/2024 08:47:46 Bladder Scan completed Kristina Dean PA-C [address] [place] [address],[address], [place], [address], [facility] 11/19/2023 15:20:31 Imaging Results None recorded. Procedure Notes None recorded. Medical Equipment None Reported. Allergies Allergen ID Allergen Name Allergen Category Reaction Reaction Severity Criticality Documentation Date Start Date Code Code System Note Provider Name and Address Organization Details Recorded Time 844864 Medicinal product containin g penicilli n and acting as antibacte rial agent (product) medicatio n Not available Not available Not available 11/19/2023 62970 05 SNOMED Adeola avilez, [facility] 4 14:12:20 Medications Name Sig Start Date Stop [...] Available Not Available Gemtesa 75 mg tablet TAKE 1 TABLET BY MOUTH DAILY* active Not Available Not Available No t Available Vitals Date Recorded Body height Body mass index (BMI) Body weight Provider Name and Address Organization Details Last Updated DateTime 11/19/2023 182.88 cm 26.4 kg/m2 30340.51 g Adeola Jordan [facility] 11/19/2023 14:12:39 Social History Question Answer Notes LastModified by Organizat ion Details LastModified Time Tobacco Smoking Status Never Smoker Adeola avilez [facility] 11/19/2023 14:10:03 What Is Your [...] recorded. Mental Status None recorded. Family History Nothing Reported Notes:Fallopian cancer - Mot her Medical History Condition Response Other N High Blood Pressure N Kidney Stones N Depression N Lung Disease N GERD/Acid Reflux N Diabetes N Sexually Transmitted Infection N Bleeding Disorder N Cancer Y High Cholesterol Y Heart Disease N Immunizations Vaccine Type Date Status Provider Name and Address Organization Details Recorded Time COVID-19, mRNA, LNP-S, PF, 100 mcg/0.5mL dose or 50 mcg/0.25mL dose 06/02/2020 completed Adeola avilez [facility] 11/19/2023 13:59:28 COVID-19, mRNA, LNP-S, PF, 100 mcg/0.5mL dose or 50 mcg/0.25mL dose 06/28/2020 completed Adeola vailez [facility] 11/19/2023 13:59:28 COVID-19, mRNA, LNP-S, PF, 100 mcg/0.5mL dose or 50 mcg/0.25mL dose 02/07/2021 completed Adeola avilez [facility] 11/19/2023 13:59:28 Tdap 11/14/2015 completed Adeola avilez, [facility] 11/19/2023 13:59:28 Influenza, split virus, trivalent, preservative 01/04/2011 completed Adeola avilez, [facility] 11/19/2023 13:59:28 Td (adult), 5 Lf tetanus toxoid, preservative free, adsorbed 09/24/2005 completed Adeola avilez, [facility] 11/19/2023 13:59:28 Influenza, split virus, quadrivalent, PF 12/07/2021 completed Adeola avilez, [facility] 11/19/2023 13:59:28 Influenza, split virus, quadrivalent, PF 01/19/2019 completed Adeola avilez, [facility] 11/19/2023 13:59:28 Influenza, split virus, quadrivalent, PF 01/20/2017 completed Adeola avilez, [facility] 11/19/2023 13:59:28 Influenza, split virus, quadrivalent, PF 01/31/2020 completed Adeola avilez, [facility] 11/19/2023 13:59:28 Influenza, split virus, quadrivalent, PF 02/02/2018 completed Adeola avilez, [facility] 11/19/2023 13:59:28 Past Encounters Encounter ID Performer Location Encounter Start Date Encounter Closed Date Diagnosis/Indication Diagnosis SNOMED-CT Code Diagnosis ICD10 Code [id number] Kristina Dean PA-C [facility] [address] [address] 11/19/2023 13:55:21 11/20/2023 09:16:25 Increased frequency of urination 584827888 R35.0 Urgent magdalena deo to urinate 78491416 R39.15 Urge incon tinence of urine 37400031 N39.41 Health Concerns Section Related Observation LastModified by Organization Detai ls LastModified Time None Recorded Concern Status LastModified by Organization Details LastModified Time None Recorded Advance Directives Directive None Recorded Payers Encounter Date Sequence Insurance Name Policy Number Policy Quigley Covered Member ID Quigley Member ID Guarantor Name 11/19/[address] [facility] [id number] eRinaldo Carty [id number] Reinaldo Carty 11/19/[address] [facility]: [facility] Reinaldo Carty [id number] Reinaldo Carty Notes Date Note Type Note [...] FHx prostate cancer Kristina Dean PA-C [address] [facility],[address], [place], [address], [facility] 11/19/2023 15:21:33
--- OUTSIDE RECORDS SUMMARY | 2024-01-21 10:23 | XMS_ITS | Clinical Summary ---
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 0 09/12/2009 Active Encounters Date Type Department Care Team Description 11/21/2023 Lab Requisition [facility] [phone] Nasim Cobian MD from Last 3 Months Family History Medical History Relation Name Comments [...] ag e 18-79 1996 Tetanus booster 1998 Colonoscopy through age 75 11/07/2023 Lipids for age 45-75 11/07/2023 COVID-19 vaccine series (2023- season) 2023 02/07/2021, 06/28/2020, 06/02/2020 Influenza for age 9-49 12/07/2023 Pneumococcal series for age 6-64 Aged Out No longer eligible b ased on patient's age to complete this topic Procedures Procedure Name Priority Date/Time Associated Diagnosis Comments LAB TRACKING EVENT Routine 11/20/2023 7: 37 AM CDT PATH TISSUE EXAM Routine 11/20/2023 7:37 AM CDT from Last 3 Months Results * LAB TRACKING EVENT (11/20/2023 7:37 AM CDT) Other (Other) Client Collect / Unknown 11/20/2023 7:37 AM CDT 11/21/2023 1:53 PM CDT Nasim Cobian MD LAB BILL ONLY [facility] [address] [place] [address], * PATH TISSUE EXAM (11/20/2023 7:37 AM CDT) Case Report Pathology Report ?Case: [id number] ? Authorizing Provider: ??Nasim Cobian MD ?Collected: ? 11/20/2023 0737 ? Ordering Location: ? [facility] ?Received: ?11/21/2023 1434 ? Pathologist: ? Gio Monsalve, ? MD ? Specimen: ?Hepatic Flexure Polyp ? 11/24/2023 12:29 PM CDT [email or web address] Final Diagnosis A) COLON, HEPATIC FLEXURE, POLYPECTOMY: 1. Tubular adenoma 2. Negative for high grade dysplasia 3. Per the colonoscopy report: ?? a. Polyp size: 3 mm ?? b. Resection: Complete ?? c. Retrieval: Complete 11/24/2023 12:29 PM CDT [facility] Clinical Information Mr. Carty is a 43 y.o. undergoing screening colonoscopy. The patient has a family history of first-degree relative with colon polyps. This is the patient's first colonoscopy. 11/24/2023 12:29 PM CDT [facility] Gross Description A) Received in formalin are 3 bender mucosal fragments ranging from 3 mm to 6 mm in greatest dimension, which are entirely submitted in one cassette. It is labeled with the patient's name and designated hepatic flexure polyp. Tracy Mccloud 11/21/2023 2:41 PM 11/24/2023 12:29 PM CDT [facility] Microscopic Description The final diagnosis is based on microscopic examination of appropriate sections of all specimens. 11/24/2023 12:29 PM CDT [facility] Additional Information Interpreted at [facility] - [address] [place] [address] [address], [place] [address] 11/24/2023 12:29 PM CDT [facility] Other (Hepatic Flexure Polyp) 11/20/2023 7:37 AM CDT 11/21/2023 2:34 PM CDT Nasim Cobian MD PATHOLOGY/CYTOLOGY [facility] [address] [place] [address], from Last 3 Months Care Teams Hull Line Crew Member Relationship Specialty Start Date End Date Rm Romero MD [address] [place] [address] PCP - General Family Practice 02/27/22
== END 2024-01-20 08:02 | disposition home or self-care (01) ==
LOC: NFLDREF 01-21 10:22
PROVIDERS: PCP Family Medicine; Referring Provider Family Medicine; Visit Provider Family Medicine
DX: Z13.1 Encounter for screening for diabetes mellitus (principal); Z13.6 Encounter for screening for cardiovascular disorders
CPT/HCPCS: 80053; 80061

== ENCOUNTER 2024-11-15 15:28 | Outpatient (CLI) | payer BC, SELFPAY ==
--- NOTE | 2024-11-30 11:41 | W.PM.SLEEP ---
Sleep Study Details Details Interpreting Provider: Jermaine Date of Sleep Study: 11/15/24 Sleep Study Details: STUDY TYPE:? Home unattended ? BMI:? 26.17 ORDERING PROVIDER:? Jermaine INDICATION:? Concerned about sleep apnea ? SLEEP SUMMARY:? 434 minutes monitored RESPIRATORY SUMMARY:? AHI 4.2 Low oxygen 76 5.6% of study oxygen less than 90% Snoring 96.2% PERIODIC LIMB MOVEMENTS OF SLEEP:? Not recorded CARDIAC:? Range 40-82, mean 52.1 IMPRESSION:? Primary snoring, hypo oxygenation during sleep. This study does not demonstrate clinically significant obstructive sleep apnea, however does demonstrate significant hypo oxygenation for 5.6% of the study. RECOMMENDATION: Would repeat study either with sedative hypnotic agent or in sleep flap.
== END 2024-11-15 15:29 | disposition home or self-care (01) ==
LOC: SLEEP 15:29
PROVIDERS: PCP Family Medicine; Visit Provider Otolaryngology
DX: G47.30 Sleep apnea, unspecified (principal); G47.10 Hypersomnia, unspecified; R06.83 Snoring
CPT/HCPCS: 95806

== ENCOUNTER 2025-03-23 08:12 | Outpatient (CLI) | payer BC, SELFPAY | END 2025-03-23 08:13 | disposition home or self-care (01) | LOC: NFLDREF 03-28 10:25 | PROVIDERS: PCP Family Medicine; Referring Provider Family Medicine; Visit Provider Family Medicine | DX: Z00.00 Encounter for general adult medical examination without abnormal findings (principal) | CPT/HCPCS: 82306; 86140 ==

== ENCOUNTER 2025-04-06 08:12 | Outpatient (CLI) | payer BC, SELFPAY | END 2025-04-06 08:13 | disposition home or self-care (01) | LOC: NFLDREF 04-12 16:17 | PROVIDERS: PCP Family Medicine; Referring Provider Family Medicine; Visit Provider Family Medicine | DX: R53.83 Other fatigue (principal); N40.1 Benign prostatic hyperplasia with lower urinary tract symptoms; R35.1 Nocturia | CPT/HCPCS: 80053; 80061; 84270; 84402; 84403; 84443; G0103 ==